=== PATIENT | male | born 1980 | race Caucasian/White ===

== ENCOUNTER 2022-09-18 08:20 | Inpatient (IN) | payer OTHER ==
[~2022-09-18] VITALS: Ht 177.8 cm; Wt 113.4 kg
[2022-09-18 08:20] VITALS: BP_SYST 181
--- NOTE | 2022-09-18 08:20 | NUR ---
BROUGHT BACK TO BED #5 AND TRIAGED. REPORT GIVEN TO LEONEL
--- NOTE | 2022-09-18 08:30 | NUR ---
Assumed patient care pt aox4 gcs 15 c/o of umbilical hernia that has been giving he pain 03/13.patient states he has had this hernia for years and previous surgery performed however the pain is back and now he has multiple herniations. Diane was just recently at [facility] for same problem inpatient for 3 day then DC, pt stated surgeon notified him need of surgery however patient is worse today and surgeon office informed pt to f/u in ER is pain is not undercontrol. Patiet endorses n/v/d and denies fever, chills, CP and SOB. Patient placed in room 5 on tele monitor.
--- NOTE | 2022-09-18 08:35 | NUR ---
ER at bedside examining patient.
[2022-09-18] MEDS ORDERED: MORPHINE 2 MG/ML INJ. SYRINGE IVP ONE (08:45)
[2022-09-18] MEDS ORDERED: ONDANSETRON HCL 4 MG/2 ML VIAL IVP ONE (08:45)
[2022-09-18] MEDS ORDERED: KETOROLAC TROMETHAMINE 30 MG VIAL IVP ONE (08:45)
[2022-09-18] MEDS ORDERED: NACL 0.9% 1,000 ML IV ONE (08:45)
--- NOTE | 2022-09-18 09:05 | NUR ---
NOTIFIED ED ADMITTING, ELLE REGARDING DR. HANSON' REQUEST FOR ADMISSION/TRANSFER. PER ED ADMITTING, WE DO NOT NEED TO CALL JUST FAX TO [facility] PER FACESHEET: [facility]
[2022-09-18 09:27] LABS: BASOPHILS % (AUTO) 0.6 % (0.0-2.0); EOSINOPHILS # (AUTO) 0.4 K/uL (0.0-0.4); EOSINOPHILS % (AUTO) 5.2 % (0.0-4.0); HEMATOCRIT 44.3 % (36-54); HEMOGLOBIN 15.4 g/dL (14.0-18.0); LYMPHOCYTES # (AUTO) 2.7 K/uL (1.0-5.5); LYMPHOCYTES % (AUTO) 39.8 % (20.5-51.5); MEAN CORPUSCULAR HEMOGLOBIN 30 pg (27-31); MEAN CORPUSCULAR HGB CONC 35 % (32-36); MEAN CORPUSCULAR VOLUME 87 fL (79.0-98.0); MONOCYTES # (AUTO) 0.4 K/uL (0.0-1.0); MONOCYTES % (AUTO) 6.4 % (1.7-9.3); NEUTROPHILS # (AUTO) 3.3 K/uL (1.8-7.7); PLATELET COUNT (AUTO) 273 K/uL (130-430); RED CELL DISTRIBUTION WIDTH 12.8 % (9.0-15.0); WHITE BLOOD COUNT (AUTO) 6.9 K/uL (4.8-10.8)
--- NOTE | 2022-09-18 09:31 | NUR ---
FAXED FACESHEET TO [facility] ATTEND[facility] FAX: [phone]
[2022-09-18 09:40] LABS: CALCIUM 8.6 mg/dL (8.4-11.0); CREATININE 1.04 mg/dL (0.55-1.30)
[2022-09-18 09:54] LABS: ALBUMIN 3.6 g/dL (3.4-4.8); TOTAL BILIRUBIN 0.5 mg/dL (0.0-1.0)
--- NOTE | 2022-09-18 09:54 | NUR ---
Spole with Dr. Clarke regarding pts pain 03/13 pts pain has not subsided after morphine given 45mis ago. per Dr. GABRIEL reaganid 1mg ivp prn for modern pain.
[2022-09-18] MEDS ORDERED: INSU100V SUBCUT (10:11)
[2022-09-18] MEDS ORDERED: HYDROmorphone 1 MG/ML INJ. CARTRIDGE IVP PRN ×2 (10:15→12:00)
[2022-09-18] MEDS ORDERED: NALOXONE HCL 0.4 MG/ML AMP (NARCAN) IVP PRN ×2 (10:15→12:00)
[2022-09-18] MEDS: HYDROmorphone 1 MG/ML INJ. CARTRIDGE IVP PRN ×2 (10:20→14:34)
--- NOTE | 2022-09-18 11:03 | NUR ---
Admit bed requested Patient will be admitted to care of . Admitted to [facility] unit. Diagnosis HERNIA Inpatient (Yes or No) YES Observation (Yes or No) NO Orientation concerns or request close to nursing station (Yes or No) NO Covid Status NEGATIVE On vent or bipap NO Isolation requirements NO Needs a sitter NO From Home (Yes or if No enter name of facility) YES Requires Dialysis (Yes or No) NO Med Rec Completed (Yes of No) YES
[2022-09-18] MEDS: D5/0.45 NS 1,000 ML IV SCH ×2 (12:16→18:04)
--- NOTE | 2022-09-18 12:27 | NUR ---
blood sugar 134
[2022-09-18] MEDS ORDERED: fentaNYL CITRATE 250 MCG/5 ML AMP ONE (14:22)
[2022-09-18] MEDS ORDERED: ONDANSETRON HCL 4 MG/2 ML VIAL ONE (14:22)
[2022-09-18] MEDS ORDERED: PROPOFOL 200MG/ 20ML VIAL (DIPRIVAN) IV ONE (14:22)
[2022-09-18] MEDS ORDERED: NS 1000 ML IV.SOLN IV ONE (14:22)
[2022-09-18] MEDS ORDERED: ePHEDrine sulfate 50 MG/ML VIAL ONE (14:22)
[2022-09-18] MEDS ORDERED: SUGAMMADEX SODIUM 200 MG/2 ML VIAL IV ONE (14:22)
[2022-09-18] MEDS ORDERED: DESFLURANE 15 MIN GAS INH ONE (14:22)
[2022-09-18] MEDS ORDERED: NS IRRIG SOLN 1000 ML IR ONE (14:22)
[2022-09-18] MEDS ORDERED: ceFAZolin SODIUM 1 GM VIAL ONE (14:22)
[2022-09-18] MEDS ORDERED: MIDAZOLAM HCL 5 MG/ML VIAL (VERSED) IV ONE (14:22)
[2022-09-18] MEDS ORDERED: ROCURONIUM BROMIDE 10 MG/ML (ZEMURON) ONE (14:22)
[2022-09-18] MEDS ORDERED: ACETAMINOPHEN I.V. 1000 MG /100 ML IVPB PREMIX IV ONE (14:22)
[2022-09-18] MEDS ORDERED: LIDOCAINE 2%, 20 ML MDV ONE (14:22)
[2022-09-18] MEDS ORDERED: INSULIN Lispro 100 UNITS/ML, 3 ML VIAL (humaLOG) SUBCUT SCH (15:00)
[2022-09-18] MEDS: LORazepam 2 MG/ML VIAL IVP PRN ×2 (15:50→22:34)
--- NOTE | 2022-09-18 16:03 | NUR ---
Transfer to [facility]. IV present no sign or symptom of infiltration.
[2022-09-18 17:06] VITALS: BP_SYST 146
--- NOTE | 2022-09-18 17:18 | NUR ---
CONSULTATION: REASON FOR CONSULT: HERNIA CONSULTING PHYSICIAN: LAUREN ZAIDI ORDERED BY: Daniella RIGGS SPOKE WITH IS MATERIAL ANALYST AND IS AWARE OF THE CONSULT [phone]
--- NOTE | 2022-09-18 17:21 | NUR ---
CONSULTATION: REASON FOR CONSULT: ABNORMAL EKG/CARDIAC CLEARANCE CONSULTING PHYSICIAN: Dona RIGGS ORDERED BY: Daniella RIGGS SPOKE WITH THE VISUAL LEAD MIKAELA AND HE IS AWARE OF THE CONSULT
[2022-09-18] MEDS: INSULIN Lispro 100 UNITS/ML, 3 ML VIAL (humaLOG) SUBCUT SCH (17:56)
[2022-09-18] MEDS: INSULIN REGULAR, HUMAN 100 UNITS/ML, 3 ML VIAL (humuLIN R) SUBCUT PRN (17:57)
[2022-09-18] MEDS: HYDROmorphone 2 MG/ML VIAL IVP PRN ×2 (17:58→22:35)
[2022-09-19] VITALS: BP_SYST 120
[2022-09-19] MEDS: INSULIN REGULAR, HUMAN 100 UNITS/ML, 3 ML VIAL (humuLIN R) SUBCUT PRN ×4 (00:44→17:54)
[2022-09-19] MEDS: D5/0.45 NS 1,000 ML IV SCH ×2 (03:54→18:01)
[2022-09-19] MEDS: HYDROmorphone 2 MG/ML VIAL IVP PRN ×5 (03:56→21:11)
[2022-09-19] MEDS: ONDANSETRON HCL 4 MG/2 ML VIAL IVP PRN ×4 (06:51→21:09)
--- NOTE | 2022-09-19 07:40 | NUR ---
OPENING NOTE Received report from shift foreman RN. Upon entering room, patient is alert and oriented x4, sitting up in bed. He reports 8/10 pain at this time. IV site is intact and saline locked. Call light within reach. Safety precautions observed.
[2022-09-19 08:00] VITALS: BP_SYST 144
[2022-09-19] MEDS: INSULIN Lispro 100 UNITS/ML, 3 ML VIAL (humaLOG) SUBCUT SCH ×3 (08:00→17:53)
--- NOTE | 2022-09-19 08:20 | NUR ---
PATIENT TO SURGERY Patient to surgery at this time.
[2022-09-19 08:33] LABS: CALCIUM 9.1 mg/dL (8.4-11.0); CREATININE 0.83 mg/dL (0.55-1.30)
[2022-09-19] MEDS ORDERED: BUPIVACAINE LIPOSOME/PF 266 MG/20 ML VIAL INFIL ONE (08:33)
[2022-09-19 09:13] LABS: BASOPHILS % (AUTO) 0.3 % (0.0-2.0); EOSINOPHILS # (AUTO) 0.3 K/uL (0.0-0.4); EOSINOPHILS % (AUTO) 4.8 % (0.0-4.0); HEMATOCRIT 44.2 % (36-54); HEMOGLOBIN 15.6 g/dL (14.0-18.0); LYMPHOCYTES # (AUTO) 2.7 K/uL (1.0-5.5); LYMPHOCYTES % (AUTO) 40.2 % (20.5-51.5); MEAN CORPUSCULAR HEMOGLOBIN 30 pg (27-31); MEAN CORPUSCULAR HGB CONC 35 % (32-36); MEAN CORPUSCULAR VOLUME 85 fL (79.0-98.0); MONOCYTES # (AUTO) 0.4 K/uL (0.0-1.0); MONOCYTES % (AUTO) 5.7 % (1.7-9.3); NEUTROPHILS # (AUTO) 3.2 K/uL (1.8-7.7); PLATELET COUNT (AUTO) 267 K/uL (130-430); RED BLOOD CELL COUNT(AUTO) 5.18 MIL/uL (4.2-6.2); RED CELL DISTRIBUTION WIDTH 12.7 % (9.0-15.0); WHITE BLOOD COUNT (AUTO) 6.6 K/uL (4.8-10.8)
[2022-09-19 09:41] LABS: PROTHROMBIN TIME 9.9 SECS (9.5-12.5)
--- NOTE | 2022-09-19 09:45 | NUR ---
PATIENT RETURNED TO ROOM Surgery not done. Cardio to evaluate patient.
[2022-09-19] MEDS: HYDROcodone/ACETAMIN 5-325 MG TAB (NORCO/ VICODIN) PO PRN ×3 (09:55→23:23)
[2022-09-19 11:32] VITALS: BP_SYST 131
--- NOTE | 2022-09-19 11:45 | NUR ---
CARDIO ROUNDS Spoke to JEMIMA Castro. States that patient is cleared for surgery tomorrow.
[2022-09-19 13:26] LABS: BILIRUBIN,URINE NEGATIVE (NEGATIVE); BLOOD, URINE 1+ (NEGATIVE); CLARITY/URINE CLEAR (CLEAR); COLOR,URINE YELLOW (YELLOW); GLUCOSE,URINE 1+ (NEGATIVE); KETONES,URINE NEGATIVE (NEGATIVE); LEUKOCYTE ESTERASE ,URINE NEGATIVE (NEGATIVE); NITRITE, URINE NEGATIVE (NEGATIVE); PH,URINE 5.5 (5.0-8.0); PROTEIN URINE NEGATIVE (NEGATIVE); UROBILINOGEN,URINE 0.2 (0.2-1.0)
[2022-09-19 14:00] LABS: BACTERIA,URINE None Seen /HPF (None Seen); WBC,URINE NONE SEEN /HPF (0-3)
[2022-09-19 16:42] VITALS: BP_SYST 143
--- NOTE | 2022-09-19 17:43 | NUR ---
Dietitian Recommendations * Consider CCHO, GI Soft diet, Zeus BID after Sx * Double portions of proteins and non-starchy vegetables when appropriate LP, MS, RD Please refer to Nutrition Assessment for details. Addendum: 09/19/22 at [address] Amended: Links added.
--- NOTE | 2022-09-19 18:43 | NUR ---
NPO AFTER MIDNIGHT Per MD order. Surgery tomorrow AM.
--- NOTE | 2022-09-19 18:45 | NUR ---
CLOSING NOTE Patient sitting in bed eating dinner at this time. Pain meds given per complaint of 8/10 pain. IV site remains intact, fluids ongoing. Call light within reach. Safety precautions observed. Will endorse to oncoming nurse.
[2022-09-20] MEDS: D5/0.45 NS 1,000 ML IV SCH ×2 (04:00→13:38)
[2022-09-20 04:24] VITALS: BP_SYST 133
[2022-09-20] MEDS: ONDANSETRON HCL 4 MG/2 ML VIAL IVP PRN ×3 (06:36→23:11)
[2022-09-20] MEDS: HYDROmorphone 2 MG/ML VIAL IVP PRN ×4 (06:43→23:14)
--- NOTE | 2022-09-20 06:47 | NUR ---
pt remain NPO from midnight. medicated prn x4 for pain and nausea see E -MAR.
[2022-09-20 08:00] VITALS: BP_SYST 144
[2022-09-20] MEDS: INSULIN Lispro 100 UNITS/ML, 3 ML VIAL (humaLOG) SUBCUT SCH ×3 (08:00→18:00)
[2022-09-20 08:14] LABS: BASOPHILS % (AUTO) 0.5 % (0.0-2.0); EOSINOPHILS # (AUTO) 0.5 K/uL (0.0-0.4); EOSINOPHILS % (AUTO) 7.6 % (0.0-4.0); HEMATOCRIT 42.9 % (36-54); LYMPHOCYTES # (AUTO) 2.7 K/uL (1.0-5.5); LYMPHOCYTES % (AUTO) 42.3 % (20.5-51.5); MEAN CORPUSCULAR HEMOGLOBIN 30 pg (27-31); MEAN CORPUSCULAR HGB CONC 35 % (32-36); MEAN CORPUSCULAR VOLUME 85 fL (79.0-98.0); MONOCYTES # (AUTO) 0.5 K/uL (0.0-1.0); MONOCYTES % (AUTO) 7.2 % (1.7-9.3); NEUTROPHILS # (AUTO) 2.7 K/uL (1.8-7.7); NEUTROPHILS % (AUTO) 42.4 % (40.0-70.0); PLATELET COUNT (AUTO) 273 K/uL (130-430); RED BLOOD CELL COUNT(AUTO) 5.03 MIL/uL (4.2-6.2); RED CELL DISTRIBUTION WIDTH 12.8 % (9.0-15.0); WHITE BLOOD COUNT (AUTO) 6.3 K/uL (4.8-10.8)
[2022-09-20 08:30] LABS: ALBUMIN 3.5 g/dL (3.4-4.8); CALCIUM 9.5 mg/dL (8.4-11.0); CREATININE 0.86 mg/dL (0.55-1.30); TOTAL BILIRUBIN 0.8 mg/dL (0.0-1.0)
[2022-09-20 12:00] VITALS: BP_SYST 140
[2022-09-20] MEDS ORDERED: HYDROmorphone 1 MG/ML INJ. CARTRIDGE IVP PRN (14:30)
[2022-09-20] MEDS ORDERED: hydrALAZINE HCL 20 MG/ML VIAL IVP PRN (14:30)
[2022-09-20] MEDS ORDERED: LABETALOL 100 MG/ 20ML VIAL IVP PRN (14:30)
[2022-09-20] MEDS ORDERED: NACL 0.9% 1,000 ML IV SCH (14:30)
[2022-09-20] MEDS ORDERED: METOCLOPRAMIDE HCL 10 MG/2 ML VIAL IVP PRN (14:30)
[2022-09-20] MEDS ORDERED: MEPERIDINE HCL/PF 25 MG/ML DISP.SYRIN IVP PRN (14:30)
[2022-09-20] MEDS ORDERED: ACETAMINOPHEN I.V. 1000 MG 100 ML IV ONE (15:25)
[2022-09-20] MEDS ORDERED: HYDROmorphone 1 MG/ML INJ. CARTRIDGE ONE ×2 (17:12→17:32)
[2022-09-20] MEDS: HYDROmorphone 1 MG/ML INJ. CARTRIDGE IVP PRN ×5 (17:15→18:00)
[2022-09-20] MEDS ORDERED: HYDROmorphone 2 MG/ML VIAL ONE (17:25)
--- NOTE | 2022-09-20 18:35 | NUR ---
pt returned from OR @ 181. abd dressing c/d/i. VSS, voided, stood up. c/o pain will medicate as ordered. at bedside. refused scds.
[2022-09-20 18:38] VITALS: BP_SYST 136
[2022-09-20] MEDS: HYDROcodone/ACETAMIN 5-325 MG TAB (NORCO/ VICODIN) PO PRN (21:42)
[2022-09-20] MEDS: CEFAZOLIN 1 GM IVPB PREMIX 50 ML IV SCH (22:00)
[2022-09-20 23:10] VITALS: BP_SYST 136
[2022-09-20] MEDS: INSULIN REGULAR, HUMAN 100 UNITS/ML, 3 ML VIAL (humuLIN R) SUBCUT PRN (23:27)
[2022-09-21 00:22] VITALS: BP_SYST 134
--- NOTE | 2022-09-21 03:45 | NUR ---
pt resting in bed, pain management ongoing. reinforced the need for use of I.S. pt using IS as directed. surgical site with dressing intact.
[2022-09-21] MEDS ORDERED: HYDR-3917 PO ×2 (04:01)
[2022-09-21] MEDS: ONDANSETRON HCL 4 MG/2 ML VIAL IVP PRN ×5 (04:29→22:23)
[2022-09-21] MEDS: HYDROmorphone 2 MG/ML VIAL IVP PRN ×5 (04:45→22:24)
--- NOTE | 2022-09-21 04:57 | NUR ---
pain and nausea med administered per request, pt continues to be compliant with incentive spirometer
[2022-09-21] MEDS: CEFAZOLIN 1 GM IVPB PREMIX 50 ML IV SCH ×3 (06:08→22:29)
[2022-09-21] MEDS: HYDROcodone/ACETAMIN 5-325 MG TAB (NORCO/ VICODIN) PO PRN ×4 (06:19→16:17)
[2022-09-21] MEDS: INSULIN REGULAR, HUMAN 100 UNITS/ML, 3 ML VIAL (humuLIN R) SUBCUT PRN ×2 (06:21→22:38)
[2022-09-21 06:42] LABS: BASOPHILS % (AUTO) 0.3 % (0.0-2.0); EOSINOPHILS # (AUTO) 0.3 K/uL (0.0-0.4); EOSINOPHILS % (AUTO) 2.9 % (0.0-4.0); HEMATOCRIT 42.9 % (36-54); HEMOGLOBIN 14.5 g/dL (14.0-18.0); LYMPHOCYTES # (AUTO) 1.8 K/uL (1.0-5.5); LYMPHOCYTES % (AUTO) 19.2 % (20.5-51.5); MEAN CORPUSCULAR HEMOGLOBIN 29 pg (27-31); MEAN CORPUSCULAR HGB CONC 34 % (32-36); MEAN CORPUSCULAR VOLUME 87 fL (79.0-98.0); MONOCYTES # (AUTO) 0.8 K/uL (0.0-1.0); MONOCYTES % (AUTO) 8.6 % (1.7-9.3); NEUTROPHILS # (AUTO) 6.5 K/uL (1.8-7.7); PLATELET COUNT (AUTO) 277 K/uL (130-430); RED BLOOD CELL COUNT(AUTO) 4.93 MIL/uL (4.2-6.2); RED CELL DISTRIBUTION WIDTH 12.8 % (9.0-15.0); WHITE BLOOD COUNT (AUTO) 9.4 K/uL (4.8-10.8)
[2022-09-21 06:54] LABS: CALCIUM 9.1 mg/dL (8.4-11.0); CREATININE 0.99 mg/dL (0.55-1.30)
[2022-09-21 08:00] VITALS: BP_SYST 130
[2022-09-21] MEDS: INSULIN Lispro 100 UNITS/ML, 3 ML VIAL (humaLOG) SUBCUT SCH ×3 (08:30→17:58)
[2022-09-21] MEDS: ENOXAPARIN SODIUM 40 MG/0.4 ML SYRINGE SUBCUT SCH (08:33)
[2022-09-21] MEDS: D5/0.45 NS 1,000 ML IV SCH ×3 (10:00→18:16)
[2022-09-21 11:43] VITALS: BP_SYST 126
--- NOTE | 2022-09-21 13:51 | NUR ---
Nutrition F/U RD reviewed pts current EMR including diet hx, physician notes, nursing notes, pertinent labs/meds/procedures, care trends and care activity. Short note d/t high workload Subjective Information RD rounded to room and s/w pt. He attest to not eating very well and poor appetite d/t pain. He said he ate about 60% of breakfast. He reports nausea ,and he is taking Zofran for it. He denies any other GI symptoms. He reports LBM as 09/19. RD s/w him about the benefits of Zeus and he seemed interested to try it. Per EMR review: sully: 18; edema BL Leg 4+ non-pitting (09/19); abd soft, w/ active bowel sounds; no PO documented, BG levels have been trending high so pt should be put on a CCHO diet. Current Diet Order/Nutrition Support GI Soft x 1 day % PO intake None documented Last BM 09/20 x 1 Estimated Energy Expenditure (kcals/day) 0065-5245 (30-35 kcal/kg IBW d/t obesity, planned Sx) Estimated Protein Required (g/day) 91-113 (1.2-1.5 gm/kg IBW d/t obesity, planned Sx) Estimated Fluid Required (l/day) 2.3-2.6 (1 ml/kcal/day for adult maintenance) Problem/Etiology/Signs/Symptoms Increased nutritional needs R/T metabolic demands AEB estimated nutritional requirements for planned Sx. Altered nutrition-related labs Expected Outcomes/Goals - Monitor appetite and PO intakes w/ goal of pt meeting >75% of estimated nutritional needs, labs trending WNL, normal GI function, and skin integrity/wt maintenance Dietitian Recommendations * Ordered: CCHO, GI Soft diet * Ordered: Zeus BID * Ordered: Glucerna BID * Continue double portions of proteins and non-starchy vegetables when appropriate Follow up Moderate Risk: f/u in 3-5 days GS, MPH, RD
--- NOTE | 2022-09-21 13:53 | NUR ---
Dietitian Recommendations * Ordered: CCHO, GI Soft diet * Ordered: Zeus BID * Ordered: Glucerna BID * Continue double portions of proteins and non-starchy vegetables when appropriate GS, MPH, RD Please refer to Nutrition F/U for further details. Thanks!
[2022-09-21 16:54] VITALS: BP_SYST 124
--- NOTE | 2022-09-21 18:25 | NUR ---
patient a&o, ambulatory, vss. tolerating soft diet, passing gas, active bowel sounds, no BM since surgery. pt in 8-9 pain consistently, giving prn meds as ordered and ice packs. at bedside.
[2022-09-21 20:45] VITALS: BP_SYST 150
[2022-09-22 00:55] VITALS: BP_SYST 136
[2022-09-22] MEDS: ONDANSETRON HCL 4 MG/2 ML VIAL IVP PRN ×2 (02:46→07:56)
[2022-09-22] MEDS: HYDROmorphone 2 MG/ML VIAL IVP PRN ×2 (02:50→07:55)
[2022-09-22] MEDS: CEFAZOLIN 1 GM IVPB PREMIX 50 ML IV SCH ×2 (05:53→14:00)
[2022-09-22] MEDS: D5/0.45 NS 1,000 ML IV SCH (06:00)
[2022-09-22] MEDS: HYDROcodone/ACETAMIN 5-325 MG TAB (NORCO/ VICODIN) PO PRN ×3 (06:06→14:34)
[2022-09-22] MEDS: INSULIN REGULAR, HUMAN 100 UNITS/ML, 3 ML VIAL (humuLIN R) SUBCUT PRN ×2 (06:24→12:45)
[2022-09-22 07:14] LABS: BASOPHILS % (AUTO) 0.3 % (0.0-2.0); EOSINOPHILS # (AUTO) 0.2 K/uL (0.0-0.4); EOSINOPHILS % (AUTO) 1.7 % (0.0-4.0); HEMATOCRIT 44.5 % (36-54); HEMOGLOBIN 15.2 g/dL (14.0-18.0); LYMPHOCYTES # (AUTO) 1.5 K/uL (1.0-5.5); LYMPHOCYTES % (AUTO) 15.9 % (20.5-51.5); MEAN CORPUSCULAR HEMOGLOBIN 30 pg (27-31); MEAN CORPUSCULAR HGB CONC 34 % (32-36); MEAN CORPUSCULAR VOLUME 88 fL (79.0-98.0); MONOCYTES # (AUTO) 0.8 K/uL (0.0-1.0); MONOCYTES % (AUTO) 8.4 % (1.7-9.3); NEUTROPHILS # (AUTO) 7.2 K/uL (1.8-7.7); NEUTROPHILS % (AUTO) 73.7 % (40.0-70.0); PLATELET COUNT (AUTO) 262 K/uL (130-430); RED BLOOD CELL COUNT(AUTO) 5.09 MIL/uL (4.2-6.2); RED CELL DISTRIBUTION WIDTH 12.8 % (9.0-15.0); WHITE BLOOD COUNT (AUTO) 9.7 K/uL (4.8-10.8)
[2022-09-22] MEDS: ENOXAPARIN SODIUM 40 MG/0.4 ML SYRINGE SUBCUT SCH (07:17)
[2022-09-22 07:49] VITALS: BP_SYST 131
[2022-09-22 07:52] LABS: CALCIUM 9.3 mg/dL (8.4-11.0); CREATININE 0.89 mg/dL (0.55-1.30)
[2022-09-22] MEDS: INSULIN Lispro 100 UNITS/ML, 3 ML VIAL (humaLOG) SUBCUT SCH ×2 (07:55→12:45)
[2022-09-22 12:01] VITALS: BP_SYST 112
[2022-09-22] MEDS ORDERED: HYDR-3917 PO (12:46)
--- NOTE | 2022-09-22 15:05 | NUR ---
patient discharged to home with via private vehicle. d/c instructions given by dr moss. courtney.
== END 2022-09-22 23:42 | disposition home or self-care (01) | DRG 227 ==
LOC: SED 08:20 → SMU 09:11
PROVIDERS: ADMIT Preventive Medicine Preventive Medicine/Occupational Environmental Medicine; ATTEND Preventive Medicine Preventive Medicine/Occupational Environmental Medicine
PROC: 0DNW0ZZ Release Peritoneum, Open Approach (ICD-10-PCS; 2022-09-20)
PROC: 0WUF0JZ Supplement Abdominal Wall with Synthetic Substitute, Open Approach (ICD-10-PCS; principal; 2022-09-20 14:32)
DX: K43.9 Ventral hernia without obstruction or gangrene (principal); E87.1 Hypo-osmolality and hyponatremia; K42.9 Umbilical hernia without obstruction or gangrene; M50.80 Other cervical disc disorders, unspecified cervical region; M51.86 Other intervertebral disc disorders, lumbar region; I42.6 Alcoholic cardiomyopathy; F10.20 Alcohol dependence, uncomplicated; Y90.9 Presence of alcohol in blood, level not specified; E11.65 Type 2 diabetes mellitus with hyperglycemia; Z20.822 Contact with and (suspected) exposure to COVID-19; Z79.01 Long term (current) use of anticoagulants; Z91.041 Radiographic dye allergy status; K66.0 Peritoneal adhesions (postprocedural) (postinfection)
CPT/HCPCS: 36415; 71045; 80048; 80053; 81000; 82962; 83880; 84484; 85025; 85610-TC; 85730-TC; 86886; 86900; 86901; 87081; 93005; 93306; 96361; 96374; 96375; 99285; C9290; J0131; J0690; J1170; J1650; J1885; J2001; J2060; J2250; J2270; J2405; J2704; J3010; J3490; J7030